=== PATIENT | male | born 1940 | race Caucasian/White ===

== ENCOUNTER 2023-03-16 20:32 | Inpatient (IN) | payer MEDICARE ==
[~2023-03-16] VITALS: Ht 167.6 cm; Wt 67.6 kg
--- NOTE | 2023-03-16 21:05 | NUR ---
REPORT RECEIVED FROM ANUSHKA MAYES. PT BIBA TO RM 3, ON A 5150. PT A,A AND O X 3 WITH NAD OBSERVED.
--- NOTE | 2023-03-16 21:30 | NUR ---
PT WAS GIVEN JUICE. WAITNG FOR LAB RESULTS AND UA.
[2023-03-16 21:51] LABS: HEMATOCRIT 38.5 % (36.7-47.1); MEAN CORPUSCULAR HEMOGLOBIN 31.6 uug (23.8-33.4); MEAN CORPUSCULAR VOLUME 96.5 fL (73.0-96.2); PLATELET COUNT (AUTO) 374 K/uL (152-348)
--- NOTE | 2023-03-16 21:55 | NUR ---
PT'S BLOOD DRAWN AT BEDSIDE BY LAB.
[2023-03-16 22:00] LABS: CARBON DIOXIDE 25 mmol/L (21-32); CHLORIDE 103 mmol/L (98-107); CREATININE 1.6 mg/dL (0.6-1.3); POTASSIUM 4.3 mmol/L (3.5-5.1); UREA NITROGEN, BLOOD 29 mg/dL (7-18)
[2023-03-16 22:06] LABS: ACETAMINOPHEN < 2.0 ug/mL (10-30); ALANINE AMINOTRANSFERASE 16 U/L (16-63); ALKALINE PHOSPHATASE 94 U/L (50-136); ASPARTATE AMINOTRANSFERASE 15 U/L (15-37); BILIRUBIN,DIRECT 0.1 mg/dL (0.0-0.2); BILIRUBIN,TOTAL 0.1 mg/dL (0.2-1.0); TOTAL PROTEIN, SERUM 7.1 g/dL (6.4-8.2)
[2023-03-16 22:13] LABS: THYROID STIMULATING HORMONE 2.759 mIU/mL (0.358-3.740)
--- NOTE | 2023-03-16 22:45 | NUR ---
PT'S URINE COLLECTED/ SENT TO LAB.
--- NOTE | 2023-03-16 23:00 | NUR ---
AT BEDSIDE FOR PT EVAL.
[2023-03-16 23:16] LABS: *BILIRUBIN,URIN NEGATIVE (NEGATIVE); *BLOOD, URINE NEGATIVE (NEGATIVE); *CLARITY,URINE CLEAR (CLEAR); *COLOR,URINE YELLOW (YELLOW); *KETONES,URINE NEGATIVE (NEGATIVE); *UROBILINOGEN,URINE 0.2 E.U./dl (NORMAL); LEUKOCYTE ESTERASE ,URINE NEGATIVE (NEGATIVE); NITRITE, URINE NEGATIVE (NEGATIVE); PH,URINE 5.5 (5.0-8.0); UGLUCOSE NEGATIVE (NEGATIVE)
[2023-03-16 23:30] LABS: *AMPHETAMINE, URINE NEGATIVE (NEGATIVE); *CANNABINOID, URINE NEGATIVE (NEGATIVE); *COCCAINE, URINE NEGATIVE (NEGATIVE); *PHENCYCLIDINE SCREEN,URINE NEGATIVE (NEGATIVE)
--- NOTE | 2023-03-16 23:45 | NUR ---
PT MEDICALLY CLEARED, AWAITING CIVIL SERVICE CLERK. [facility] WAS CALLED FOR BED. I SPOKE WITH SMITHA MAYES. PT GOING TO RM 137 A.
--- NOTE | 2023-03-17 00:50 | NUR ---
BAUTISTA CROP AND SOIL TECHNICIAN HERE TO PUT PT ON 5150.
--- NOTE | 2023-03-17 01:45 | NUR ---
5150 COMPLETED BY [facility] CLINICIAN.
--- NOTE | 2023-03-17 02:15 | NUR ---
REPORT GIVEN TO RENATE CASTANO
[2023-03-17] MEDS ORDERED: LOSA100T3 PO (02:20)
[2023-03-17] MEDS ORDERED: ALLO300T2 PO (02:22)
[2023-03-17] MEDS ORDERED: BUPR300T52 (02:23)
--- NOTE | 2023-03-17 02:30 | NUR ---
Pt. admitted to [facility], RM 137A , under care of Dr. DUTTA/ FAUSTINO Belongs List completed
[2023-03-17 02:45] VITALS: BP 109/73; TEMP 97.8; O2SAT 98
[2023-03-17] MEDS ORDERED: TEMAZEPAM 7.5 MG CAPSULE PO PRN (03:15)
[2023-03-17] MEDS ORDERED: ACETAMINOPHEN 325 MG TABLET PO PRN (03:15)
[2023-03-17] MEDS ORDERED: LORAZEPAM 0.5 MG TABLET PO PRN (03:15)
[2023-03-17] MEDS ORDERED: MAG HYDROX/AL HYDROX/SIMETH 30 ML LIQUID UDC PO PRN (03:15)
[2023-03-17] MEDS ORDERED: MAGNESIUM HYDROXIDE 30 ML LIQUID UDC PO PRN (03:15)
--- NOTE | 2023-03-17 04:08 | NUR ---
Patient arrived via wheelchair. SUGEY Dailey transported the patient with paperwork. Patient admitted on 5150 for Danger to self. Patient's son called the mental health crisis team because patient did not eat for a week, did not take medication, and felt hopeless and without a desire to live after he lost his approx. three years ago. Upon arrival patient was alert, and oriented to name, place and situation. Cooperative with admission interview. No skin issues noted. Patient observed to be able to ambulate and care for self. Patient has a history of depression and medical problems including chronic renal failure, gout, chronic kidney disease, gerd, hypertension, & osteoarthritis. Patient provided with patient's rights handbook, asnd oriented to room. Continue to monitor and provide a safe environment.
[2023-03-17 07:46] VITALS: BP 112/47; TEMP 98; O2SAT 98
[2023-03-17] MEDS ORDERED: FLUO20CA36 PO (11:38)
[2023-03-17] MEDS ORDERED: METO-357 PO (11:39)
[2023-03-17] MEDS ORDERED: COLC0.6T67 PO (11:40)
[2023-03-17] MEDS ORDERED: CHOL10005 PO (11:41)
[2023-03-17] MEDS ORDERED: LOSA50TA39 PO (11:42)
[2023-03-17] MEDS ORDERED: FERR324T11 PO (11:42)
[2023-03-17] MEDS ORDERED: FLUOXETINE HCL 20 MG CAPSULE PO SCH (13:00)
[2023-03-17] MEDS: FLUOXETINE HCL 10 MG CAPSULE PO SCH (14:36)
--- NOTE | 2023-03-17 14:43 | NUR ---
GPS: Nursing Notes: Destructive Behavior To Self: Patient is awake and responding to his name, needs prompting to participate in therapeutic groups, depressed mood and blunted affect, isolative and withdrawn in his room, low energy level, stated "I am depressed, but I do not want to hurt anybody..." "No, I do not want to hurt myself.." Verbally grayson for safety, unable to formulate a viable plan for self care, continue to monitor for safety, continue with treatment plan.
[2023-03-17 15:06] VITALS: BP 109/64; TEMP 98; O2SAT 98
[2023-03-17 20:00] VITALS: BP 111/68; TEMP 97.9; O2SAT 91
--- NOTE | 2023-03-18 01:31 | NUR ---
Pt received in the room resting. No apparent distress noted .Alert and oriented to person and place . safety precautions in place.Denies self harm and suicidal ideations. able to contract for safety with this typewriter assembly and parts inspector. Will continue to monitor.
[2023-03-18 08:03] VITALS: BP 126/60; TEMP 97.8; O2SAT 98
[2023-03-18 08:31] LABS: ALANINE AMINOTRANSFERASE 18 U/L (16-63); ALKALINE PHOSPHATASE 84 U/L (50-136); ASPARTATE AMINOTRANSFERASE 14 U/L (15-37); BILIRUBIN,TOTAL 0.2 mg/dL (0.2-1.0); CARBON DIOXIDE 27 mmol/L (21-32); CHLORIDE 105 mmol/L (98-107); CREATININE 1.5 mg/dL (0.6-1.3); POTASSIUM 4.6 mmol/L (3.5-5.1); TOTAL PROTEIN, SERUM 6.6 g/dL (6.4-8.2); UREA NITROGEN, BLOOD 32 mg/dL (7-18)
[2023-03-18] MEDS: buPROPion XL 150 MG TAB.SR.24H PO SCH (09:03)
--- NOTE | 2023-03-18 09:18 | NUR ---
ANGELI Family Contact: ANGELI spoke with pt's daughter, Tabitha [phone] regarding pt's discharge plan. Tabitha agrees that pt will need further care at a facility and that pt is agreeable. Tabitha stated that anywhere near their home in [place] or [place] so that pt can be close to family. ANGELI will continue to confirm with family.
[2023-03-18] MEDS: FLUOXETINE HCL 10 MG CAPSULE PO SCH (12:42)
[2023-03-18 15:34] VITALS: BP 138/48; TEMP 98.2; O2SAT 98
--- NOTE | 2023-03-18 15:53 | NUR ---
Pt is responding to his name and seems calm up on approach. Pt is isolative and withdrawn. Pt stays in his room for most of the shift and does not interact with staff or peers. Pt does not have a bailable plan for care. Pt is compliant with care and medications. Pt can perform his ADLs independently with no assistance. Pt Denies SI and verbally contracted for safety. Safety measures in place. Continue to monitor for safety.
--- NOTE | 2023-03-18 16:21 | NUR ---
ANGELI Initial Discharge Note: Pt currently resides at home alone located at [address] [place] [id number] . ANGELI spoke with pt's daughter, Tabitha [phone] who is agreeable for pt to be referred to a assisted facility upon discharge. pt has been on his own and with family on and off. Pt is agreeable to a assisted facility upon discharge. ANGELI will continue to work with pt, family and MD to ensure a safe and proper discharge plan.
[2023-03-18 20:01] VITALS: BP 132/52; TEMP 98.1; O2SAT 98
--- NOTE | 2023-03-19 05:16 | NUR ---
Pt received in the room.Calm and cooperative. No self harm behavior noted. Safety precautions in place. Will continue to monitor.
[2023-03-19 07:58] VITALS: BP 124/67; TEMP 98.2; O2SAT 99
[2023-03-19 08:11] LABS: HEMATOCRIT 35.7 % (36.7-47.1); MEAN CORPUSCULAR HEMOGLOBIN 31.6 uug (23.8-33.4); MEAN CORPUSCULAR VOLUME 96.2 fL (73.0-96.2); PLATELET COUNT (AUTO) 313 K/uL (152-348)
[2023-03-19 08:25] LABS: ALANINE AMINOTRANSFERASE 23 U/L (16-63); ALKALINE PHOSPHATASE 80 U/L (50-136); ASPARTATE AMINOTRANSFERASE 13 U/L (15-37); BILIRUBIN,TOTAL 0.2 mg/dL (0.2-1.0); CARBON DIOXIDE 28 mmol/L (21-32); CHLORIDE 106 mmol/L (98-107); CREATINE KINASE, TOTAL 37 U/L (39-308); CREATININE 1.3 mg/dL (0.6-1.3); MAGNESIUM 1.9 mg/dL (1.8-2.4); PHOSPHOROUS 3.3 mg/dL (2.5-4.9); POTASSIUM 4.8 mmol/L (3.5-5.1); TOTAL PROTEIN, SERUM 6.3 g/dL (6.4-8.2); UREA NITROGEN, BLOOD 33 mg/dL (7-18)
[2023-03-19] MEDS: buPROPion XL 150 MG TAB.SR.24H PO SCH (09:23)
[2023-03-19] MEDS: FLUOXETINE HCL 10 MG CAPSULE PO SCH (13:47)
[2023-03-19 15:28] VITALS: BP 100/64; TEMP 98; O2SAT 96
--- NOTE | 2023-03-19 19:27 | NUR ---
Pt was spending most of his time in his room throught the shift. Pt came out a few times but did not want to stay out. Pt is still depressed but denies s.i. Pt is compliant with his medications.
[2023-03-19 19:58] VITALS: BP 119/62; TEMP 98.3; O2SAT 98
[2023-03-20 08:14] VITALS: BP 101/54; TEMP 98; O2SAT 96
[2023-03-20] MEDS: buPROPion XL 150 MG TAB.SR.24H PO SCH (08:18)
[2023-03-20 10:07] LABS: A/G RATIO 0.9 (0.7-1.7); ALBUMIN 2.8 g/dL (2.9-4.4); ALPHA-1-GLOBULIN 0.2 g/dL (0.0-0.4); ALPHA-2-GLOBULIN 0.8 g/dL (0.4-1.0); GAMMA GLOBULIN 0.9 g/dL (0.4-1.8); M-SPIKE Not Observed g/dL (Not Observed)
[2023-03-20] MEDS: FLUOXETINE HCL 10 MG CAPSULE PO SCH (12:07)
[2023-03-20] MEDS: METOPROLOL SUCCINATE XL 50 MG TAB.SR.24H PO SCH (15:00)
[2023-03-20 15:32] VITALS: BP 117/69; TEMP 98; O2SAT 98
[2023-03-20] MEDS: COLCHICINE 0.6 MG TABLET PO SCH (16:10)
[2023-03-20 19:55] VITALS: BP 92/71; TEMP 98.2; O2SAT 98
[2023-03-21 07:58] VITALS: BP 110/69; TEMP 98.2; O2SAT 99
[2023-03-21] MEDS: ALLOPURINOL 100 MG TABLET PO SCH (09:55)
[2023-03-21] MEDS: CHOLECALCIFEROL 1,000 UNIT TABLET PO SCH (09:55)
[2023-03-21] MEDS: COLCHICINE 0.6 MG TABLET PO SCH ×2 (09:55→17:00)
[2023-03-21] MEDS: FERROUS GLUCONATE 324 MG TABLET PO SCH (09:55)
[2023-03-21] MEDS: buPROPion XL 150 MG TAB.SR.24H PO SCH (10:16)
[2023-03-21] MEDS: METOPROLOL SUCCINATE XL 50 MG TAB.SR.24H PO SCH (10:20)
[2023-03-21] MEDS: FLUOXETINE HCL 10 MG CAPSULE PO SCH (15:39)
[2023-03-21 16:17] VITALS: BP 113/68; TEMP 98; O2SAT 98
[2023-03-21 20:00] VITALS: BP 116/66; TEMP 98.5; O2SAT 96
--- NOTE | 2023-03-21 20:30 | NUR ---
received patient in the day room. He is noted A/O x 3. he is calm and pleasant upon approached. He is able to verbalized his feelings. and he is noted goal oriented. he stated that he is here because he was feeling sad about the lost of his 3 years ago. she said, "we were together for 56 years". He also stated, "I miss her but i don't want to or kill myself. i have family to live for". Patient was able to verbally CFS. He was given PO fluids and snacks. his V/S are stable. he is reassured for his safety. safety and fall precautions are in place. will continue to monitor.
[2023-03-22 08:30] VITALS: BP 131/65; TEMP 98.2; O2SAT 100
[2023-03-22] MEDS: CHOLECALCIFEROL 1,000 UNIT TABLET PO SCH (08:30)
[2023-03-22] MEDS: buPROPion XL 150 MG TAB.SR.24H PO SCH (08:30)
[2023-03-22] MEDS: METOPROLOL SUCCINATE XL 50 MG TAB.SR.24H PO SCH (08:30)
[2023-03-22] MEDS: FERROUS GLUCONATE 324 MG TABLET PO SCH (08:31)
[2023-03-22] MEDS: ALLOPURINOL 100 MG TABLET PO SCH (08:31)
[2023-03-22] MEDS: COLCHICINE 0.6 MG TABLET PO SCH ×2 (08:31→17:26)
[2023-03-22] MEDS: FLUOXETINE HCL 10 MG CAPSULE PO SCH (14:24)
--- NOTE | 2023-03-22 15:06 | NUR ---
Received patient is alert and oriented x4 isolative guarded withdrawn no interaction with other peers.patient denies any SI but refused to attend in group activity stay in his room at all time ,compliant with all medication ,low energy will continue close monitoring.
[2023-03-22 16:32] VITALS: BP 108/65; TEMP 98.1; O2SAT 98
[2023-03-22 20:16] VITALS: BP 129/81; TEMP 98.2; O2SAT 98
--- NOTE | 2023-03-22 20:30 | NUR ---
received patient in the hallway He is noted A/O x 3. he is calm and pleasant upon approached. He is able to verbalized his feelings. He is noted talking to other clients in the unit. he is less isolative less withdrawn. He denied SI/HI//AH Patient was able to verbally CFS. He was given PO fluids and snacks. his V/S are stable. he is reassured for his safety. safety and fall precautions are in place. will continue to monitor.
[2023-03-23 07:27] LABS: BILIRUBIN,TOTAL 0.2 mg/dL (0.2-1.0); CREATININE 1.2 mg/dL (0.6-1.3); POTASSIUM 4.5 mmol/L (3.5-5.1); TOTAL PROTEIN, SERUM 6.6 g/dL (6.4-8.2)
[2023-03-23 07:47] VITALS: BP 110/61; TEMP 98; O2SAT 99
[2023-03-23] MEDS: FERROUS GLUCONATE 324 MG TABLET PO SCH (08:25)
[2023-03-23] MEDS: ALLOPURINOL 100 MG TABLET PO SCH (08:25)
[2023-03-23] MEDS: CHOLECALCIFEROL 1,000 UNIT TABLET PO SCH (08:25)
[2023-03-23] MEDS: COLCHICINE 0.6 MG TABLET PO SCH ×2 (08:25→17:45)
[2023-03-23] MEDS: METOPROLOL SUCCINATE XL 50 MG TAB.SR.24H PO SCH (08:26)
[2023-03-23] MEDS: buPROPion XL 150 MG TAB.SR.24H PO SCH (08:27)
--- NOTE | 2023-03-23 10:00 | NUR ---
Received patient in bed. He is noted sleeping but easily arousable. He is A/O x 2 to 3. calm and pleasant upon approached. he is compliant with his QAM meds. He is noted isolative and withdrawn but he denied SI/HI/AH/VH. he is able to verbally CFS. safety and fall precautions are in place. he is reassured for his safety.V/S stable. will continue to monitor.
[2023-03-23] MEDS: FLUOXETINE HCL 10 MG CAPSULE PO SCH ×2 (13:00→14:30)
--- NOTE | 2023-03-23 13:50 | NUR ---
Veda not in med room. Per pharmacist, she will bring soon.
[2023-03-23 16:03] VITALS: BP 120/57; TEMP 98.1; O2SAT 98
[2023-03-23 20:43] VITALS: BP 100/52; TEMP 98.4; O2SAT 99
--- NOTE | 2023-03-24 02:16 | NUR ---
GPS/NSG Patient's Probable Cause Hearing upheld for [facility] Disability.
[2023-03-24 08:00] VITALS: BP 122/77; TEMP 98; O2SAT 99
[2023-03-24] MEDS: ALLOPURINOL 100 MG TABLET PO SCH (09:05)
[2023-03-24] MEDS: FERROUS GLUCONATE 324 MG TABLET PO SCH (09:05)
[2023-03-24] MEDS: COLCHICINE 0.6 MG TABLET PO SCH ×2 (09:05→17:00)
[2023-03-24] MEDS: CHOLECALCIFEROL 1,000 UNIT TABLET PO SCH (09:05)
[2023-03-24] MEDS: buPROPion XL 150 MG TAB.SR.24H PO SCH (09:05)
[2023-03-24] MEDS: METOPROLOL SUCCINATE XL 50 MG TAB.SR.24H PO SCH (09:07)
--- NOTE | 2023-03-24 09:53 | NUR ---
ANGELI Discharge Update: ANGELI spoke with pt's daughter, Tabitha [phone] who asked for pt to be referred to [facility] by [facility] [address] [address] . ANGELI spoke with the owners, Genevieve [phone] and Kisha [phone] who informed this sports writer that they are a private independent living and they are accepting him to continue care. Pt's nurse provided report and Shubham confirmed his acceptance. Shubham stated the family will need to arrange a psychiatrist, caregiver for the pt and additional needs they may need. Tabitha is aware of this and agreeable.
--- NOTE | 2023-03-24 11:49 | NUR ---
SW Discharge Update: ANGELI spoke with pt's daughter, Tabitha [phone] regarding pt's discharge to [facility] by [facility] [facility] [address] on 03/25/23. Tabitha stated she will call this bond underwriter back and provide follow-up details today.
[2023-03-24] MEDS: FLUOXETINE HCL 10 MG CAPSULE PO SCH (12:34)
[2023-03-24 16:02] VITALS: BP 113/49; TEMP 98; O2SAT 97
--- NOTE | 2023-03-24 18:35 | NUR ---
Patient is cooperative with nursing care, compliant with medications, depressed and preoccupied at times, engage in verbal approaches. Active listening provided. Patient is A/O X 3 to person, place. Fall and safety precautions implemented.
[2023-03-24 19:47] VITALS: BP 141/51; TEMP 98.3; O2SAT 98
--- NOTE | 2023-03-24 21:58 | NUR ---
GPS: Asleep during rounds at this time. Safe environment provided. Pt.is less depressed and anxious. Re-assured prn. Denies SI. Needs attended. Will continue to monitor.
[2023-03-25 07:52] VITALS: BP 118/89; TEMP 98.4; O2SAT 95
[2023-03-25] MEDS: FERROUS GLUCONATE 324 MG TABLET PO SCH (08:33)
[2023-03-25] MEDS: COLCHICINE 0.6 MG TABLET PO SCH (08:33)
[2023-03-25] MEDS: ALLOPURINOL 100 MG TABLET PO SCH (08:33)
[2023-03-25 08:34] VITALS: BP 118/89
[2023-03-25] MEDS: METOPROLOL SUCCINATE XL 50 MG TAB.SR.24H PO SCH (08:34)
[2023-03-25] MEDS: buPROPion XL 150 MG TAB.SR.24H PO SCH (08:34)
[2023-03-25] MEDS: CHOLECALCIFEROL 1,000 UNIT TABLET PO SCH (08:35)
--- NOTE | 2023-03-25 09:48 | NUR ---
ANGELI Discharge Note: Pt will be [facility] [place] [address] [facility] [address] via pts daughter, Tabitha [phone] and sonRick private vehicle transportation between 3 and 4PM. ANGELI spoke with admin coordinator, Genevieve [phone] and Kisha [phone] at the [facility] who state they are ready to accept the patient today. Pt is aware and agreeable with discharge plan. Pt is alert and oriented x4, and is able to continue care at [facility]. Pt denies any suicidal or homicidal ideation. Pt will follow-up with his outpatient Psychiatrist, Dr. Mark Santamaria [phone] and Wire Stitcher, Dr. Nazario Han [phone]. Pt presents with calm mood and congruent affect. PHARMACY: [facility] [address] [facility] [phone].
[2023-03-25] MEDS: FLUOXETINE HCL 10 MG CAPSULE PO SCH (12:29)
--- NOTE | 2023-03-25 15:29 | NUR ---
Received orders to discharged this patient to [facility] by [facility] [address] [facility] [address] via pts daughterTabitha [phone] and sonRick private vehicle transportation between 3 and 4PM. Patient is agreeable with discharge plans, and signed all discharge documentation. Patient denies SI/HI AH/VH, SOB, pain or any discomfort. Patient left unit at 15:30. Emotional support provided. Fall and safety precautions implemented.
== END 2023-03-25 15:30 | DRG 885 ==
LOC: ER 20:45 → GPS 22:55
PROVIDERS: ADMIT Psychiatry & Neurology Psychosomatic Medicine
DX: F33.2 Major depressive disorder, recurrent severe without psychotic features (principal); N18.9 Chronic kidney disease, unspecified; N17.0 Acute kidney failure with tubular necrosis; R45.851 Suicidal ideations; F41.9 Anxiety disorder, unspecified; E78.5 Hyperlipidemia, unspecified; E88.09 Other disorders of plasma-protein metabolism, not elsewhere classified; N40.0 Benign prostatic hyperplasia without lower urinary tract symptoms; Z85.46 Personal history of malignant neoplasm of prostate; Z88.2 Allergy status to sulfonamides; I13.10 Hypertensive heart and chronic kidney disease without heart failure, with stage 1 through stage 4 chronic kidney disease, or unspecified chronic kidney disease; F39 Unspecified mood [affective] disorder; Z73.6 Limitation of activities due to disability
CPT/HCPCS: 36415; 83735; 83970; 84100; 84155; 84165; 84443; 85025; G0480; J8499